=== PATIENT | female | born 1975 | race Caucasian/White ===

== ENCOUNTER 2016-10-25 08:23 | Emergency (ER) | payer SELFPAY ==
[2016-10-25 08:32] VITALS: BP 180/119
== END 2016-10-25 09:02 | disposition left against medical advice (07) ==
LOC: ER 08:23
DX: F10.129 Alcohol abuse with intoxication, unspecified (principal); Z53.21 Procedure and treatment not carried out due to patient leaving prior to being seen by health care provider

== ENCOUNTER 2020-05-23 23:35 | Emergency (ER) | payer SELFPAY ==
[~2020-05-23] VITALS: Ht 154.9 cm; Wt 49.9 kg
[2020-05-24] MEDS ORDERED: cloNIDine HCL 0.1 MG TAB PO ONE (00:15)
[2020-05-24 00:20] VITALS: BP 189/131
[2020-05-24] MEDS ORDERED: HALOPERIDOL LACTATE 5 MG/ML INJ VIAL IM ONE (00:45)
[2020-05-24] MEDS ORDERED: diphenhdrAMINE HCL 50 MG/1 ML VL IV ONE (00:45)
[2020-05-24] MEDS ORDERED: MIDAZOLAM HCL 1MG/1ML-2 ML VIAL IV ONE (00:45)
[2020-05-24 00:49] LABS: Basophils # (auto) 0.1 10 ^3/uL (0-0.2); Eosinophils # (auto) 0.1 10 ^3/uL (0-0.8); Hemoglobin 7.8 g/dL (12.2-16.2); Mean Corpuscular Volume 67.2 fL (80.0-100.0); Monocytes # (auto) 0.4 10 ^3/uL (0-1.3); Neutrophils # (auto) 4.5 10 ^3/uL (1.6-8.6); Nucleated Red Blood Cells % 0.3 %
[2020-05-24 00:50] LABS: Basophils % (auto) 1.4 % (0.0-2.0); Eosinophils % (auto) 1.8 % (0.0-7.0); Hematocrit 26.8 % (36.0-46.0); Lymphocytes # (auto) 2.2 10 ^3/uL (0.4-5.4); Lymphocytes % (auto) 29.8 % (10.0-50.0); Mean Corpuscular Hemoglobin 19.5 pg (28.0-32.0); Mean Corpuscular Hgb Conc. 29.1 g/dL (32.0-36.0); Monocytes % (auto) 5.4 % (0.0-12.0); Neutrophils % (auto) 61.6 % (37.0-80.0); Platelet Count (auto) 292 10^3/uL (140-450); Red Blood Cells 3.99 10^6/uL (4.0-5.20); White Blood Cell 7.3 10^3/uL (4.4-10.8)
[2020-05-24 00:58] LABS: Red Cell Distribution Width 21.5 % (11.8-14.3)
[2020-05-24 01:05] LABS: INR 1.24 (0.9-1.15); Partial Thromboplastin Time 22.5 sec (23.0-31.2)
[2020-05-24 01:09] LABS: BUN/Creatinine Ratio 43.1; Calcium 8.3 mg/dL (8.5-10.1); Potassium 3.6 mmol/L (3.5-5.1)
[2020-05-24 01:14] LABS: Bilirubin, Total 1.4 mg/dL (0.2-1.0); Total Protein 6.8 g/dL (6.4-8.2)
== END 2020-05-24 00:53 | disposition left against medical advice (07) ==
LOC: ER 23:36
DX: R10.9 Unspecified abdominal pain (principal); Z53.21 Procedure and treatment not carried out due to patient leaving prior to being seen by health care provider
CPT/HCPCS: 36415; 71045; 80053; 83880; 84484; 84702; 85025; 85610; 85730; J1200; J1630; J2250; 93005